=== PATIENT | male | born 1980 | race Hispanic/Latino ===

== ENCOUNTER 2022-04-18 07:06 | Day surgery (SDC) | payer OTHER ==
[~2022-04-18] VITALS: Ht 167.6 cm; Wt 81.6 kg
[~2022-04-18 07:06] MED LIST: HYDROCHLOROT25 MG PO; LISINOPRIL20 M1 PO; NORVASC10 M1 PO
[2022-04-18] MEDS ORDERED: TORADOL PO (08:25)
[2022-04-18] MEDS ORDERED: TRAMADOL HCL50 MG PO (08:25)
[2022-04-18 10:49] VITALS: BP 116/78
== END 2022-04-18 10:35 | DRG 355 ==
LOC: ORM 07:06
PROVIDERS: ATTEND Surgery
PROC: 0WUF4JZ Supplement Abdominal Wall with Synthetic Substitute, Percutaneous Endoscopic Approach (ICD-10-PCS; principal; 2022-04-18)
DX: K43.2 Incisional hernia without obstruction or gangrene (principal); I10 Essential (primary) hypertension; Z87.11 Personal history of peptic ulcer disease
CPT/HCPCS: C1781; J0131